=== PATIENT | female | born 1990 | race Caucasian/White ===

== ENCOUNTER 2017-04-24 19:06 | Emergency (ER) | payer OTHER ==
[~2017-04-24] VITALS: Ht 124.4 cm; Wt 113.4 kg
[~2017-04-24 19:06] MED LIST: CLARITIN10 MG PO; MACROBID100 M1 PO; ZITHROMAX Z PA250 MG PO
== END 2017-04-24 19:42 | disposition home or self-care (01) ==
LOC: ED 19:06
DX: S61.411A Laceration without foreign body of right hand, initial encounter (principal); W45.0XXA Nail entering through skin, initial encounter; Y93.89 Activity, other specified; Y92.89 Other specified places as the place of occurrence of the external cause; Y99.8 Other external cause status

== ENCOUNTER 2017-06-18 15:32 | Emergency (ER) | payer OTHER ==
[~2017-06-18] VITALS: Ht 147.3 cm; Wt 113.4 kg
[2017-06-18] MEDS ORDERED: AUGMENTIN 875875 MG PO (16:43)
== END 2017-06-18 16:46 | disposition home or self-care (01) ==
LOC: ED 15:32
DX: S61.235A Puncture wound without foreign body of left ring finger without damage to nail, initial encounter (principal); W54.0XXA Bitten by dog, initial encounter; Y93.89 Activity, other specified; Y92.89 Other specified places as the place of occurrence of the external cause; Y99.8 Other external cause status

== ENCOUNTER 2017-09-16 12:46 | Emergency (ER) | payer OTHER ==
[~2017-09-16] VITALS: Ht 147.3 cm; Wt 113.4 kg
[~2017-09-16 12:46] MED LIST changes: +AUGMENTIN 875875 MG PO
[2017-09-16 13:05] LABS: BILIRUBIN NEGATIVE (NEGATIVE); BLOOD 3+ (NEGATIVE); CLARITY SL CLOUDY (CLEAR); COLOR YELLOW (YELLOW); GLUCOSE NEGATIVE (NEGATIVE); KETONE NEGATIVE (NEGATIVE); LEUKO ESTERASE 2+ (NEGATIVE); NITRITE NEGATIVE (NEGATIVE); SPECIFIC GRAVITY 1.015 (1.005-1.030); UROBILINOGEN 0.2 E.U./dl (0.2-1.0)
[2017-09-16 13:15] LABS: BACTERIA 2+; CALCIUM OXALATE CRYSTALS TRACE; EPITHELIAL CELLS 15-20; WBC 31-40 wbc/hpf (0-5)
[2017-09-16] MEDS ORDERED: PYRIDIUM200 M1 PO (16:06)
[2017-09-16] MEDS ORDERED: MACROBID100 M1 PO (16:06)
== END 2017-09-16 16:09 | disposition home or self-care (01) ==
LOC: ED 12:46
PROVIDERS: Nurse Practitioner Family
DX: N39.0 Urinary tract infection, site not specified (principal); R31.9 Hematuria, unspecified; Z79.899 Other long term (current) drug therapy

== ENCOUNTER 2018-02-23 23:40 | Emergency (ER) | payer OTHER ==
[~2018-02-23] VITALS: Ht 149.8 cm; Wt 113.4 kg
[~2018-02-23 23:40] MED LIST changes: +PYRIDIUM200 M1 PO
== END 2018-02-24 00:09 | disposition home or self-care (01) ==
LOC: ED 23:40
DX: Z00.00 Encounter for general adult medical examination without abnormal findings (principal)

== ENCOUNTER 2018-03-18 18:28 | Emergency (ER) | payer OTHER ==
[~2018-03-18] VITALS: Wt 113.4 kg
[2018-03-18 20:33] LABS: BILIRUBIN NEGATIVE (NEGATIVE); BLOOD 3+ (NEGATIVE); CLARITY CLOUDY (CLEAR); COLOR YELLOW (YELLOW); GLUCOSE NEGATIVE (NEGATIVE); KETONE NEGATIVE (NEGATIVE); LEUKO ESTERASE NEGATIVE (NEGATIVE); NITRITE NEGATIVE (NEGATIVE); PH 5.5 (5.0-9.0); SPECIFIC GRAVITY >= 1.030 (1.005-1.030); UROBILINOGEN 0.2 E.U./dl (0.2-1.0)
[2018-03-18 20:39] LABS: BACTERIA 1+; RBC TNTC rbc/hpf (0-2)
[2018-03-18 20:41] LABS: BASO % 0.2 % (0.0-1.0); EOS # 0.3 10*3/uL (0.0-0.4); EOS % 2.7 % (1.0-4.0); HEMATOCRIT 42.6 % (37.0-47.0); HEMOGLOBIN 14.1 g/dl (12.0-16.0); LYMPH # 4.8 10*3/uL (1.3-4.4); LYMPH % 42.1 % (27.0-41.0); MEAN CELL VOLUME 89.7 fl (81.0-99.0); MEAN CORPUSCULAR HGB 29.7 pg (27.0-31.0); MEAN CORPUSCULAR HGB CONC 33.1 g/dl (33.0-37.0); MEAN PLATELET VOLUME 9.2 fl (9.6-12.3); MONO # 0.7 10*3/uL (0.1-1.0); NEUT # 5.6 10*3/uL (2.3-7.9); NEUT % 48.8 % (47.0-73.0); PLATELET COUNT AUTOMATED 370 10*3/uL (130-400); RED BLOOD COUNT 4.75 10*6/uL (4.10-5.10); RED CELL DISTRI WIDTH 13.5 % (0-14.5); WHITE BLOOD COUNT 11.4 10*3/uL (4.8-10.8)
[2018-03-18 20:51] LABS: BUN 13 mg/dl (7-24); CHLORIDE 107 mmol/L (98-107); CREATININE 0.78 mg/dL (0.55-1.02); POTASSIUM 3.6 mmol/L (3.5-5.1); SODIUM 142 mmol/L (136-145)
[2018-03-18] MEDS ORDERED: Motrin,Rufen800 MG PO (22:04)
== END 2018-03-18 22:15 | disposition home or self-care (01) ==
LOC: ED 18:28
PROVIDERS: Emergency Medicine Emergency Medical Services
DX: M25.552 Pain in left hip (principal); M25.551 Pain in right hip

== ENCOUNTER → 2021-07-11 | Outpatient (CLI) | payer OTHER ==
[~2021-07-11] MED LIST changes: +Motrin,Rufen800 MG PO
== END | disposition home or self-care (01) ==
LOC: D 09:19
PROVIDERS: ATTEND Family Medicine
DX: E66.1 Drug-induced obesity (principal)

== ENCOUNTER 2022-01-17 21:06 | Emergency (ER) | payer OTHER ==
[~2022-01-17] VITALS: Ht 149.8 cm; Wt 111.1 kg
[2022-01-17 23:31] LABS: BASO % 0.3 % (0.0-1.0); EOS # 0.3 10*3/uL (0.0-0.4); EOS % 3.6 % (1.0-4.0); HEMATOCRIT 42.6 % (37.0-47.0); LYMPH % 23.1 % (27.0-41.0); MEAN CELL VOLUME 89.7 fl (81.0-99.0); MEAN CORPUSCULAR HGB 28.6 pg (27.0-31.0); MEAN CORPUSCULAR HGB CONC 31.9 g/dl (33.0-37.0); MEAN PLATELET VOLUME 9.1 fl (9.6-12.3); MONO # 0.6 10*3/uL (0.1-1.0); MONO % 7.1 % (3.0-9.0); NEUT # 5.7 10*3/uL (2.3-7.9); NEUT % 65.7 % (47.0-73.0); PLATELET COUNT AUTOMATED 312 10*3/uL (130-400); RED BLOOD COUNT 4.75 10*6/uL (4.10-5.10); RED CELL DISTRI WIDTH 13.7 % (0-14.5); WHITE BLOOD COUNT 8.6 10*3/uL (4.8-10.8)
[2022-01-17 23:48] LABS: ALKALINE PHOSPHATASE 74 U/L (45-117); BUN 9 mg/dl (7-24); CHLORIDE 106 mmol/L (98-107); CREATININE 0.66 mg/dL (0.55-1.02); POTASSIUM 3.7 mmol/L (3.5-5.1); SGOT/AST 16 IU/L (3-35); SGPT/ALT 24 U/L (12-78); SODIUM 139 mmol/L (136-145); TOTAL PROTEIN 7.1 gm/dL (6.4-8.2)
[2022-01-18] MEDS ORDERED: PAXLOVID 300-11 EACH PO (05:12)
== END 2022-01-18 05:19 | disposition home or self-care (01) ==
LOC: ED 21:06
PROVIDERS: Emergency Medicine
DX: B34.9 Viral infection, unspecified (principal); Z79.899 Other long term (current) drug therapy; Z79.2 Long term (current) use of antibiotics

== ENCOUNTER → 2022-11-27 | Outpatient (CLI) | payer OTHER ==
[~2022-11-27] MED LIST changes: +PAXLOVID 300-11 EACH PO
== END | disposition home or self-care (01) ==
LOC: MRI 00:35
PROVIDERS: ATTEND Specialist
DX: H93.12 Tinnitus, left ear (principal)

== ENCOUNTER → 2024-09-09 | Outpatient (CLI) | payer BC | END | disposition home or self-care (01) | LOC: CARD 02:21 | PROVIDERS: ATTEND Family Medicine | DX: I35.0 Nonrheumatic aortic (valve) stenosis (principal); R07.9 Chest pain, unspecified ==

== ENCOUNTER → 2024-10-20 | Outpatient (CLI) | payer BC ==
[~2024-10-20] MED LIST changes: +PROCARDIA XL30 MG PO; +Synthroid,Lev200 MCG PO; +ZOLOFT100 MG PO
== END | disposition home or self-care (01) ==
LOC: CARD 02:16
PROVIDERS: ATTEND Family Medicine
DX: R06.02 Shortness of breath (principal)